=== PATIENT | male | born 1995 | race Caucasian/White ===

== ENCOUNTER 2016-10-03 22:33 | Emergency (ER) | payer OTHER ==
[2016-10-03] MEDS ORDERED: NO HOME MEDICATION XX (22:41)
== END 2016-10-04 00:28 ==
LOC: EDMED 22:33
DX: S91.132A Puncture wound without foreign body of left great toe without damage to nail, initial encounter (principal); W26.8XXA Contact with other sharp object(s), not elsewhere classified, initial encounter; Y92.019 Unspecified place in single-family (private) house as the place of occurrence of the external cause